=== PATIENT | female | born 1980 | race Two or more races ===

== ENCOUNTER 2017-11-16 05:10 | Emergency (ER) | payer OTHER ==
[~2017-11-16] VITALS: Ht 167.6 cm; Wt 47.6 kg
== END 2017-11-16 13:34 | disposition home or self-care (01) ==
LOC: ER 05:10
DX: O20.0 Threatened abortion (principal); O30.041 Twin pregnancy, dichorionic/diamniotic, first trimester; Z34.81 Encounter for supervision of other normal pregnancy, first trimester